=== PATIENT | female | born 1980 | race Caucasian/White ===

== ENCOUNTER → 2018-07-07 09:47 | Outpatient (POV) | payer BC, SELFPAY | PROVIDERS: Visit Provider Dermatology | DX: Z00.00 Encounter for general adult medical examination without abnormal findings (principal) ==

== ENCOUNTER 2021-12-04 04:00 | Day surgery (SDC) | payer BC, SELFPAY ==
[2021-12-04] VITALS (17 sets, daily range): BP systolic 101–128; BP diastolic 44–77; PULSE 88–115; RESP 16–20; TEMP 36.8–43; O2SAT 94–100; BMI 25.8
--- NOTE | 2021-12-04 04:09 | CT_ITS ---
PROCEDURE INFORMATION: Exam: CT Abdomen And Pelvis Without Contrast Exam date and time: 12/04/2021 4:42 AM Age: 41 years old Clinical indication: Abdominal pain; Flank; Left; Additional info: Lt flank pain TECHNIQUE: Imaging protocol: Computed tomography of the abdomen and pelvis without contrast. Radiation optimization: All CT scans at this facility use at least one of these dose optimization techniques: automated exposure control; mA and/or kV adjustment per patient size (includes targeted exams where dose is matched to clinical indication); or iterative reconstruction. COMPARISON: No relevant prior studies available. FINDINGS: PANCREATICOHEPATOBILIARY: The liver is normal without a focal intrahepatic mass or abnormality. No significant intra-or extrahepatic ductal dilation. Gallbladder, pancreas and spleen are unremarkable. . GENITOURINARY: No adrenal mass. Nonobstructive punctate LEFT renal stone(s) measuring 1-3 mm. 6 x 4 mm proximal LEFT ureteric calculus with [id number] LEFT sided hydronephrosis and hydroureter. Asymmetric LEFT perinephric-periureteric fat stranding/trace perinephric fluid. Partially distended urinary bladder. Uterus is unremarkable, LEFT ovarian cyst/follicle measuring 4.5 x 3.4 cm. Trace amount of free fluid in the pelvis. . GASTROINTESTINAL: A few colonic diverticula. Colon contains moderate amount of fecal matter and air. Note is made of a small hiatal hernia. No free intraperitoneal air or fluid collection. A normal APPENDIX is visualized. . OTHER STRUCTURES: Aorta appears unremarkable without evidence of aortic aneurysm. No bulky lymph node enlargement. Calcific granulomas in the RIGHT lower lobe and a noncalcific subpleural mm nodule. IMPRESSION: 1. OBSTRUCTIVE PROXIMAL LEFT URETERIC CALCULUS. 2. Cystic LEFT ovarian/adnexal mass as described. Differential diagnosis includes functional/physiologic ovarian cyst, hemorrhagic ovarian cyst, ovarian torsion, tubo-ovarian abscess/PID and cystic ovarian neoplasm. Recommend sonography followup. 3. Other nonemergent/incidental findings as described. COMMENTS: Suboptimal evaluation of bowel loops and abdominal organs due to motion artifact and due to lack of intravenous and oral contrast.
[2021-12-04 04:32] LABS: Alanine Aminotransferase 34 U/L (12-78); Albumin Level 4.3 g/dl (3.5-5.0); Albumin/Globulin Ratio 1.3 (1.1-1.8); Alkaline Phosphatase 92 U/L (38-126); Amylase 68 U/L (30-110); Anion Gap 13.7 mEq/L (5-15); Aspartate Amino Transferase 39 U/L (14-36); Bilirubin,Total 0.5 mg/dl (0.2-1.3); Blood Urea Nitrogen 12 mg/dl (7-17); Calcium 8.9 mg/dl (8.4-10.2); Carbon Dioxide 23 mmol/L (22.0-30.0); Chloride 107 mmol/L (98-107); Creatinine Clearance Estimated 78 mL/min (50-200); Estimated Glomerular Filt Rate 55 ml/min (>60); GFR (African American) 67 ML/MIN (>60); Globulin 3.3 g/dL (1.3-3.2); Glucose 109 mg/dl (74-100); Lipase 122 U/L (23-300); Potassium 3.7 mmoL/L (3.5-5.1); Sodium 140 mmol/L (136-145); Total Protein,Serum 7.6 g/dl (6.3-8.2)
[2021-12-04 04:33] LABS: Basophils % 0.6 % (0.1-2.0); Eosinophils % 1.4 % (0.1-12.0); Hemoglobin 14.3 g/dL (12.2-16.2); Lymphocytes # 0.3 K/mm3 (0.7-4.5); Lymphocytes % 18.8 % (10-50); Mean Corpuscular HGB Conc 33.2 g/dL (31.8-35.4); Mean Corpuscular Hemoglobin 30.4 pg (27.0-31.2); Mean Corpuscular Volume 91.7 fl (81-99); Mean Platelet Volume 8.7 fl (7.4-10.4); Monocytes # 0.1 K/mm3 (0.1-1.0); Monocytes % 5.4 % (1.7-9.3); Neutrophils % 73.7 % (37.0-80.0); Platelet Count 156 K/mm3 (142-424); Red Blood Count 4.69 M/mm3 (4.20-5.40); Red Cell Distribution Width 12.9 % (11.5-17.5); White Blood Count 1.4 K/mm3 (4.8-10.8)
[2021-12-04 04:37] LABS: C-Reactive Protein 0.6 mg/L (0-4); HCG Qualitative, Serum Negative (Negative)
[2021-12-04 04:51] LABS: Procalcitonin 0.115 ng/mL (0.0-2.0)
[2021-12-04 05:01] LABS: Erythrocyte Sedimentation Rate 12 mm/hr (0-20)
[2021-12-04 05:36] LABS: Microscopic, Urine URINE MICROSCOPIC (MICROSCOPIC)
[2021-12-04 05:47] LABS: Appearance,Urine CLEAR (Clear); Bilirubin,Urine Negative (Negative); Blood, Urine TRACE-L (Negative); Color,Urine YELLOW (Yellow); Glucose,Urine (UA) Negative (Negative); Ketones,Urine Negative (Negative); Leukocyte Esterase,Urine Negative (Negative); Nitrate,Urine Negative (Negative); PH,Urine 5.5 (5.0-8.5); Protein,Urine Negative (Negative); Specific Gravity, Urine 1.015 (1.005-1.030); Urobilinogen,Urine 0.2 EU/dl (0.2)
[2021-12-04 06:08] LABS: Bacteria,Urine Trace /lpf; RBC,Urine Occasional #/hpf (0-3); WBC,Urine Occasional #/hpf (0-3)
--- NOTE | 2021-12-04 06:08 | HMH.EDABDPAI ---
Discharge Plan Disposition Condition: Good Chief Complaint: Abdominal Pain Prescriptions Prescriptions: No Action No Known Home Medications Referrals Follow up/Referrals: Ho Hammond MD [Primary Care Provider] - See instructions Clinical Impressions Clinical Impression: Renal colic on left side, Mass of left ovary, Abnormal CBC Instructions Patient Instructions: DI for Kidney Stones Discharge ED Provider: Willis Cohen Abdominal Pain HPI General Chief Complaint: Abdominal Pain Stated Complaint: possible kidney stone Time Seen by Provider: 12/04/21 06:09 Mode of Arrival: Wheelchair Source of Information: Patient, Spouse and Medical Record Limitations: No Limitations Description of Symptoms (Recalled from ER Triage Doc. by RN): pt c/o lt flank pain radiating to lt groin area with n/v that started @ 1am History of Present Illness HPI narrative: acute onset of lt flank pain this am - no fever and no known renal colic complaint: flank pain Onset (ago): hour(s) Consistency: colicky Location: L flank Severity: moderate Associated symptoms: nausea and vomiting Related Data Home Medications Medication Instructions Recorded Confirmed No Known Home Medications 12/04/21 12/04/21 Allergies Allergy/AdvReac Type Severity Reaction Status Date / Time azithromycin Allergy Verified 12/04/21 10:15 PFSH PFSH Social History Smoking Status: Current every day smoker alcohol intake: never current occupational status: employed ROS Obtained: Yes All systems reviewed & no additional complaints except as documented Constitutional Constitutional: Denies fever(s) and Denies headache(s) Eyes Eyes: Denies photophobia ENT Ears, Nose, Mouth, and Throat: Denies epistaxis and Denies headache(s) Cardiovascular Cardiovascular: Denies chest pain with activity Respiratory Respiratory: Denies shortness of breath Neurologic Neurologic: Denies headache(s) Physical Exam General General appearance: alert Head Head exam: normocephalic Eye Eye exam: Present PERRL and EOMI ENT ENT exam: Present mucous membranes moist Neck Neck exam: Present trachea midline Respiratory Respiratory exam: Present normal lung sounds bilaterally Cardiovascular Cardiovascular exam: Present regular rate Abdominal Exam Abdominal exam: Present soft Back Exam Back exam: Absent CVA tenderness (L) Neurological Exam Neurological exam: Present alert, oriented X3 and CN II-XII intact Psychiatric Psychiatric exam: Present normal affect Skin Skin exam: Absent rash Medical Decision Making Medical Records Medical records reviewed: Yes I reviewed the patient's medical records. Abundio Inquiry Pt receiving controlled substance: No Vital Signs: 12/04/21 04:00 12/04/21 04:30 12/04/21 04:40 Temperature 98.2 F Temperature Source Oral Pulse Rate 90 91 H Pulse Rate [Right] 115 H Respiratory Rate 20 Blood Pressure 112/61 110/71 Blood Pressure [Right Arm] 127/66 Blood Pressure Mean 77 81 Blood Pressure Mean [Right Arm] 86 Blood Pressure Source Blood Pressure Position 02 Sat by Pulse Oximetry 100 99 99 Oxygen Delivery Method 12/04/21 05:00 12/04/21 07:00 12/04/21 07:30 Temperature Temperature Source Pulse Rate 97 H 97 H 94 H Pulse Rate [Right] Respiratory Rate Blood Pressure 128/65 110/63 112/66 Blood Pressure [Right Arm] Blood Pressure Mean 76 82 Blood Pressure Mean [Right Arm] Blood Pressure Source Blood Pressure Position 02 Sat by Pulse Oximetry 99 100 97 Oxygen Delivery Method Room Air 12/04/21 09:00 12/04/21 10:19 Temperature 98.6 F Temperature Source Oral Pulse Rate 113 H 110 H Pulse Rate [Right] Respiratory Rate 18 Blood Pressure 104/77 L 104/77 L Blood Pressure [Right Arm] Blood Pressure Mean 86 Blood Pressure Mean [Right Arm] Blood Pressure Source Automatic Cuff Blood Pressure Position Standing 02 Sat by Pulse Oximetr
--- NOTE | 2021-12-04 06:35 | US_ITS ---
FINAL REPORT CLINICAL HISTORY: possible mass FINDINGS: Transvaginal sonographic images of the pelvis were obtained. The uterus measures 8.2 x 4.9 x 3.5 cm. The endometrium measures 9 mm, which is within normal limits. No uterine mass is identified. The right ovary measures 3.4 cm in length. The left ovary is enlarged and heterogeneous measuring 4.7 cm with a 2.5 cm adjacent cyst. There is a 3.9 cm heterogeneous solid area within the left ovary that could represent a hemorrhagic cyst or possibly neoplasm. Normal blood flow seen to the ovaries. Small follicles are present in the right ovary. There is no evidence of free fluid. IMPRESSION: Solid heterogeneous area in an enlarged left ovary could represent a hemorrhagic cyst or possibly neoplasm. Recommend follow-up. Reviewed, Interpreted and Dictated by Will Butler III, MD Transcribed by Reddy Ha Authenticated and . [facility]
--- NOTE | 2021-12-04 06:37 | PC.NURSE ---
notified xray of ultrasound order
[2021-12-04 06:42] LABS: Basophils % 0.1 % (0.1-2.0); Eosinophils # 0.1 K/mm3 (0.0-0.4); Eosinophils % 1.6 % (0.1-12.0); Hematocrit 36.2 % (37.0-47.0); Lymphocytes # 0.2 K/mm3 (0.7-4.5); Lymphocytes % 3.7 % (10-50); Mean Corpuscular HGB Conc 33.5 g/dL (31.8-35.4); Mean Corpuscular Hemoglobin 30.3 pg (27.0-31.2); Mean Corpuscular Volume 90.4 fl (81-99); Monocytes # 0.1 K/mm3 (0.1-1.0); Monocytes % 1.6 % (1.7-9.3); Neutrophils # 3.7 K/mm3 (1.8-7.8); Platelet Count 136 K/mm3 (142-424); Red Cell Distribution Width 12.9 % (11.5-17.5)
[2021-12-04 06:44] LABS: MANUAL DIFFERENTIAL MANUAL DIFFERENTIAL (MANUAL DIFF)
[2021-12-04 06:46] LABS: Hemoglobin 12.1 g/dL (12.2-16.2)
--- NOTE | 2021-12-04 07:15 | PC.NURSE ---
contacted back digger operator to have Dr. Knapp called for ER
[2021-12-04 07:17] LABS: Lymphocytes % 4 % (10-50); Monocytes % 2 % (2-9); Neutrophils % 94 % (42-76); Platelet Estimate Normal; RBC Morphology Normal; Total Cells Counted 100
--- NOTE | 2021-12-04 07:40 | PC.NURSE ---
patient to US via wc with data reduction technician at this time
--- NOTE | 2021-12-04 07:40 | PC.NURSE ---
PT TO RADIOLOGY AT THIS TIME FOR U/S
--- NOTE | 2021-12-04 07:50 | PC.NURSE ---
DR. WALTERS SPEAKING WITH DR. THOMASON. DR. THOMASON WILL COME TO ED TO EVALUATE PT
--- NOTE | 2021-12-04 08:35 | PC.NURSE ---
0835, ROUNDED ON PT AT THIS TIME, MEDICATED PER EMAR. ADDITIONAL WARM BLANKET PROVIDED. CALL LIGHT WITHIN REACH
[2021-12-04 08:49] LABS: Coronavirus 19, PCR Not Detected (NotDetected); Influenza A, PCR Not Detected (NotDetected); Influenza B, PCR Not Detected (NotDetected)
--- NOTE | 2021-12-04 09:40 | PC.NURSE ---
DR. THOMASON AT BEDSIDE
--- NOTE | 2021-12-04 10:01 | PC.NURSE ---
PT AND UPDATED AT THIS TIME, POC IS SURGERY AT 1330. MEEK FROM PRE-OP WILL COME SPEAK WITH PT. PT GIVEN ORAL CARE KIT AT THIS TIME. NO FURTHER NEEDS
--- NOTE | 2021-12-04 11:06 | EXP.ANES.CKL ---
PFSH PFS Surgical History (Updated 12/04/21 @ 11:09 by Chano Soto CRNA) H/O colonoscopy History of esophagogastroduodenoscopy (EGD) [place] teeth extracted Social History (Updated 12/04/21 @ 10:44 by Willis Cohen MD) Smoking Status: Current every day smoker alcohol intake: never substance use type: denies use current occupational status: employed [employer] Anesthesia Checklist Patient Identification Patient Identification: Arm Band Structural Data Admitted From: Emergency Dept Planned Operative Procedure/s: Cystoscopy with Left Ureteral Stent Placement Verified Documents: Surgical Consent and History and Physical NPO Status Verified Time NPO: 00:00 Additional verifications Anesthesia Reactions: No Airway Assessment C-Spine Mobility Assessed: Yes TMJ Mobility Assessed: Yes Dentition: Good Dentition Neurological Assessment Level of Consciousness: Awake and Alert Anesthesia Plan Anesthesia Risk discussed: Yes Anesthesia Plan: Verified ASA Class: II Anesthesia Type: General
--- NOTE | 2021-12-04 11:22 | EXP.ANES.I ---
[facility] Anesthesia Record Part I Anesthesia Record I Intake, IV Amount: 600 Estimated blood loss (mL): 0 Urine output (mL): 0 Blood Pressure: 101/44 SaO2: 94 Pulse Rate: 88 Respiratory Rate: 16 Temperature: 98.7 F Patient is:: Drowsy and Stable Stable to PACU at:: 11:20
--- NOTE | 2021-12-04 11:25 | XR_ITS ---
FINAL REPORT CLINICAL HISTORY: ureteroscopy with STENT PLACEMENT, fluoro time 2:13 FINDINGS: Fluoroscopic guidance was provided for the operating services. Two spot films were provided. 2 minutes 13 seconds of fluoroscopy time was utilized. IMPRESSION: 2 minutes 13 seconds of fluoroscopy time. Reviewed, Interpreted and Dictated by Wlil Butler III, MD Transcribed by Reddy Ha Authenticated and . [facility]
--- NOTE | 2021-12-04 11:40 | EXP.GEN.HP ---
HPI HPI HPI: Patient is a 41-year-old white female with acute onset of left flank pain radiating to the left lower quadrant last evening. She presented to the emergency room where a CT scan shows a 6 x 3 mm stone in the proximal left ureter with hydronephrosis. She has had severe renal colic which has improved with pain medication. She has had associated nausea vomiting. Her white count is 4000 and creatinine is 1.1. PFSH PFSH Surgical History H/O colonoscopy History of esophagogastroduodenoscopy (EGD) [place] teeth extracted Social History Smoking Status: Current every day smoker alcohol intake: never substance use type: denies use current occupational status: employed Travel in the last 8 weeks: None Review of Systems Review of Systems Review of systems:: pertinent systems reviewed and negative unless documented below Constitutional Constitutional: Reports system reviewed and no additional complaints, except as documented and Denies headache(s) ENT Ears, Nose, Mouth, and Throat: Denies headache(s) *Neurologic Neurologic: Denies headache(s) Meds Home Medications and Allergies Home Medications Medication Instructions Recorded Confirmed Type No Known Home Medications 12/04/21 12/04/21 History New Prescriptions to Start Prescriptions: Allergies Allergy/AdvReac Type Severity Reaction Status Date / Time azithromycin Allergy Verified 12/04/21 10:15 Exam Data for Last 24 hours Vital signs and Labs for Last 24 Hours: Temp Pulse Resp BP Pulse Ox 98.7 F 88 16 101/44 L 100 12/04/21 11:23 12/04/21 11:23 12/04/21 11:23 12/04/21 11:23 12/04/21 09:00 Laboratory Results - last 24 hr 12/04/21 04:15: WBC 1.4 L*, RBC 4.69, Hgb 14.3, Hct 43.0, MCV 91.7, MCH 30.4, MCHC 33.2, RDW 12.9, Plt Count 156, MPV 8.7, Neut % (Auto) 73.7, Lymph % (Auto) 18.8, [place] % (Auto) 5.4, Eos % (Auto) 1.4, Baso % (Auto) 0.6, Neut # (Auto) 1.0 L, Lymph # (Auto) 0.3 L, [place] # (Auto) 0.1, Eos # (Auto) 0.0, Baso # (Auto) 0.0, ESR 12 12/04/21 04:15: Sodium 140, Potassium 3.7, Chloride 107, Carbon Dioxide 23, Anion Gap 13.7, BUN 12, Creatinine 1.10 H, Estimated Creat Clear 78, Estimated GFR 55 L, Est GFR ( Amer) 67, Glucose 109 H, Calcium 8.9, Total Bilirubin 0.5, AST 39 H, ALT 34, Alkaline Phosphatase 92, C-Reactive Protein 0.6, Total Protein 7.6, Albumin 4.3, Globulin 3.3 H, Albumin/Globulin Ratio 1.3, Amylase 68, Lipase 122, Procalcitonin 0.115 12/04/21 04:15: Serum HCG, Qual Negative 12/04/21 05:30: Urine Color Yellow, Urine Appearance Clear, Urine pH 5.5, Ur Specific [place] 1.015, Urine Protein Negative, Urine Glucose (UA) Negative, Urine Ketones Negative, Urine Blood Trace-l, Urine Nitrate Negative, Urine Bilirubin Negative, Urine Urobilinogen 0.2, Ur Leukocyte Esterase Negative, Urine RBC Occasional, Urine WBC Occasional, Ur Squamous Epith Cells 3-5, Urine Bacteria Trace 12/04/21 06:26: WBC 4.0 L D, RBC 4.00 L, Hgb 12.1 L D, Hct 36.2 L, MCV 90.4, MCH 30.3, MCHC 33.5, RDW 12.9, Plt Count 136 L, MPV 8.0, Neut % (Auto) 93.0 H, Lymph % (Auto) 3.7 L, [place] % (Auto) 1.6 L, Eos % (Auto) 1.6, Baso % (Auto) 0.1, Neut # (Auto) 3.7, Lymph # (Auto) 0.2 L, [place] # (Auto) 0.1, Eos # (Auto) 0.1, Baso # (Auto) 0.0, Total Counted 100, Neutrophils % (Manual) 94 H, Lymphocytes % (Manual) 4 L, Monocytes % (Manual) 2, Platelet Estimate Normal, RBC Morphology Normal 12/04/21 08:35: SARS-CoV-2 (PCR) Not detected, Influenza A Untype (PCR) Not detected, Influenza Type B (PCR) Not detected I & O for Last 24 hours: Intake & Output 12/01/21 12/02/21 12/03/21 12/04/21 23:59 23:59 23:59 23:59 Intake Total 600 / 600 Balance 600 / 600 Weight 72.575 kg Constitutional Constitutional: no acute distress *Routine HEENT Exam Head: Present normocephalic Eye: Present EOMI ENT: Present mucous membranes moist *Routine Neck Exam Ne
--- NOTE | 2021-12-04 11:44 | EXP.OP.NOTE ---
Date of procedure: 12/04/21 Pre-op Diagnosis:: 6 mm left proximal ureteral stone Post-op Diagnosis:: Left proximal ureteral stone with obstruction Procedure performed:: Cystoscopy with stone manipulation and left ureteral stent placement Surgeon:: Kian Knapp MD FOREST FIRE SPECIALIST SUPERVISOR:: Chano Soto Anesthesia: LMA Estimated blood loss (mL): 0 Clinical Note:: 41-year-old white female with cute onset of left renal colic last evening. CT scan shows a 6 mm proximal left ureteral stone. We have discussed treatment options and she wishes to proceed with urologic management. Operative findings:: Imaging revealed a calcification in the left proximal ureter. Stone was manipulated proximally back into the kidney and a 4.8 x 24 [place] stent was placed. Operative note:: Patient taken to the operating room after informed consent was obtained. She was placed on the operating table in the supine position and general anesthesia administered. Preoperative antibiotics and sequential compression devices placed. She was then placed into the dorsolithotomy position and prepped and draped in the standard surgical fashion. The 22 [place] the scope passed into the urethra and passed easily into the bladder. The bladder was examined in a systematic fashion. There is no evidence of mucosal abnormality stones diverticula or trabeculation. The ureteral orifices in their normal anatomic position. A 5 [place] ureteral catheter passed into the left ureteral orifice and passed proximally to the left ureteral stone. Stone was manipulated easily back into the left renal pelvis. A guidewire then passed through the ureteral catheter and the ureteral cath removed. A 4.8 x 24 [place] stent was then passed over the guidewire and under fluoroscopy the string and guidewire removed. A good curl was noted proximally and distally. There was brisk output noted from the left ureter with decompression of the ureter. Patient tolerated the procedure well there are no complications. Condition: stable Disposition: PACU Specimens:: None Complications:: None
--- NOTE | 2021-12-04 11:55 | SUR.PHASEI ---
1150- detailed report given to bull resendiz in post op 1151- pt left in stable condition with bull resendiz
--- NOTE | 2021-12-05 08:13 | EXP.ANES.II ---
[facility] Anesthesia Record Part II Anesthesia Record Part II Discharge Time: 11:50 Destination: Surgical Day Care (OP Surgery) PACU nurse assessment reviewed?: Yes Patient Condition:: Good Anesthesia Complications:: None Swallowing reflex intact?: Yes Cyanosis?: No Blood Pressure: 106/52 Pulse Rate: 96 Temperature: 98.7 F Mental Status: Alert & Oriented Pain level:: 0 Nausea and/or vomitting:: None Intake, IV Amount: 0
[2021-12-05 08:15] VITALS: BP 106/52; PULSE 96; TEMP 37.1
[2021-12-06 06:53] LABS: Peripheral Smear Review Scanned Result
== END 2021-12-04 12:30 | disposition home or self-care (01) ==
LOC: ER 10:37 → SDC 12-05 09:59
PROVIDERS: Emergency Medicine; PCP Internal Medicine Adolescent Medicine; Visit Provider Urology
PROC: (CPT 52330; principal; 2021-12-04 13:15)
DX: N20.1 Calculus of ureter (principal); Z72.0 Tobacco use; N23 Unspecified renal colic
CPT/HCPCS: 52330; 52332; 36415; 74018; 74176; 76000; 76830; 80053; 81001; 82150; 83690; 84145; 84703; 85007; 85025; 85651; 86140; 96374; C2617; C9803; J2405; J2505; U0003; U0005

== ENCOUNTER → 2021-12-12 16:52 | Outpatient (CLI) | payer BC, SELFPAY ==
[2021-12-12 17:00] LABS: MANUAL DIFFERENTIAL MANUAL DIFFERENTIAL (MANUAL DIFF)
[2021-12-12 17:37] LABS: Basophils # 0.1 K/mm3 (0-0.2); Basophils % 1.5 % (0.1-2.0); Eosinophils # 0.1 K/mm3 (0.0-0.4); Eosinophils % 1.4 % (0.1-12.0); Hematocrit 41.2 % (37.0-47.0); Hemoglobin 13.3 g/dL (12.2-16.2); Lymphocytes # 2.2 K/mm3 (0.7-4.5); Lymphocytes % 34.1 % (10-50); Mean Corpuscular HGB Conc 32.2 g/dL (31.8-35.4); Mean Corpuscular Hemoglobin 30.4 pg (27.0-31.2); Mean Corpuscular Volume 94.3 fl (81-99); Mean Platelet Volume 9.5 fl (7.4-10.4); Monocytes # 0.5 K/mm3 (0.1-1.0); Monocytes % 7.3 % (1.7-9.3); Neutrophils # 3.5 K/mm3 (1.8-7.8); Neutrophils % 55.6 % (37.0-80.0); Platelet Count 282 K/mm3 (142-424); Red Blood Count 4.37 M/mm3 (4.20-5.40); Red Cell Distribution Width 13.2 % (11.5-17.5); White Blood Count 6.4 K/mm3 (4.8-10.8)
[2021-12-12 17:49] LABS: Anion Gap 9.6 mEq/L (5-15); Blood Urea Nitrogen 14 mg/dl (7-17); Calcium 8.6 mg/dl (8.4-10.2); Carbon Dioxide 26 mmol/L (22.0-30.0); Chloride 107 mmol/L (98-107); Estimated Glomerular Filt Rate 79 ml/min (>60); GFR (African American) 96 ML/MIN (>60); Glucose 78 mg/dl (74-100); Potassium 4.6 mmoL/L (3.5-5.1); Sodium 138 mmol/L (136-145)
[2021-12-12 18:26] LABS: Urine Pregnancy, HCG Qual. Negative (Negative)
[2021-12-12 19:50] LABS: Eosinophils % 2 % (0-3); Lymphocytes % 36 % (10-50); Monocytes % 5 % (2-9); Neutrophils % 56 % (42-76); Platelet Estimate Normal; RBC Morphology Normal; Total Cells Counted 100
== END ==
PROVIDERS: PCP Internal Medicine Adolescent Medicine; Visit Provider Urology
DX: Z01.812 Encounter for preprocedural laboratory examination (principal); Z20.822 Contact with and (suspected) exposure to COVID-19; N20.1 Calculus of ureter
CPT/HCPCS: 36415; 80048; 81025; 85007; 85014; 85018; 85048; 85049; C9803; U0003; U0005

== ENCOUNTER 2021-12-14 08:35 | Day surgery (SDC) | payer BC, SELFPAY ==
[2021-12-11 13:49] VITALS: BMI 25.0
[2021-12-14] VITALS (12 sets, daily range): BP systolic 116–138; BP diastolic 52–91; PULSE 58–78; RESP 13–20; TEMP 36.1–36.7; O2SAT 94–100
--- NOTE | 2021-12-14 09:01 | XR_ITS ---
FINAL REPORT CLINICAL HISTORY: kidney stone, pre op FINDINGS: SINGLE VIEW ABDOMEN A single view of the abdomen was obtained. There is a nonobstructive bowel gas pattern. There are no abnormally dilated loops of small bowel. There are small stones in the mid left kidney. A left ureteral stent is in place. No ureteral stone is identified. IMPRESSION: Nonobstructive bowel gas pattern. Small stones in the mid left kidney. Reviewed, Interpreted and Dictated by Will Butler III, MD Transcribed by Rupali Escalera Authenticated and . [facility]
--- NOTE | 2021-12-14 10:21 | EXP.ANES.CKL ---
[facility] Surgical History H/O colonoscopy History of esophagogastroduodenoscopy (EGD) [place] teeth extracted Family History (Updated 12/11/21 @ 14:20 by Kyra Holcomb RN) Father Family history of myocardial infarction Social History (Updated 12/11/21 @ 13:53 by Kyra Holcomb RN) Smoking Status: Current every day smoker tobacco type: cigarettes packs per day: 1 pack-years: 20 alcohol intake: never substance use type: denies use current occupational status: employed Travel in the last 8 weeks: None [facility] Anesthesia Checklist Patient Identification Patient Identification: Arm Band Structural Data Admitted From: Home Planned Operative Procedure/s: left eswal Consent for Planned Operative Procedure(s) Verified: Yes Verified Documents: Surgical Consent NPO Status Verified Time NPO: 00:00 Additional verifications Anesthesia Reactions: No Hx Blood Transfusions: No Blood Transfusion Reaction: No Cephalosporin Allergy: No Airway Assessment C-Spine Mobility Assessed: Yes TMJ Mobility Assessed: Yes Dentition: Good Dentition Genitourinary Assessment Voided financial institution branch manager to O.R.: Yes Anesthesia Plan Anesthesia Risk discussed: Yes ASA Class: I Anesthesia Type: General
--- NOTE | 2021-12-14 10:38 | P.PNANES_ITS ---
[facility] Anesthesia Record Part I Anesthesia Record I Intake, IV Amount: 650 Estimated blood loss (mL): 0 Urine output (mL): 0 Blood Products used (#): none Blood Pressure: 126/52 SaO2: 98 Pulse Rate: 66 Respiratory Rate: 16 Temperature: 97 F Patient is:: Drowsy and Stable Stable to PACU at:: 10:35
--- NOTE | 2021-12-14 10:46 | EXP.OP.NOTE ---
Date of procedure: 12/14/21 Pre-op Diagnosis:: 6 mm left kidney stone Post-op Diagnosis:: Same Procedure performed:: Left ESWL Surgeon:: Kian Knapp MD FLIGHT OPERATIONS MANAGER:: Other Anesthesia: LMA Estimated blood loss (mL): 0 Clinical Note:: 41-year-old white female with recent left renal colic status post left ureteral stone manipulation left stent placement presents for ESWL. Operative findings:: Preoperative KUB reveals the 6 mm stone in the left renal pole and a stent in good position. Operative note:: Patient taken to the operating room after informed consent was obtained. She was placed on the operating table in the supine position and general anesthesia administered. Sequential compression devices and preoperative antibiotics administered. In the supine position she was positioned so that F2 the lithotripter was focused onto the left kidney stone. Total of 3000 shockwaves at a maximum energy of 6 was administered. There was evidence of good fragmentation of the stone. She tolerated procedure well no complications. Condition: stable Disposition: PACU Specimens:: None Complications:: None
--- NOTE | 2021-12-14 11:11 | SUR.PHASEI ---
1103 detailed report given to Gayle Drew RN 1105 transported via stretcher to post op. vital signs stable. rates pain at a 3. left in stable condition with Gayle Drew RN at bedside.
--- NOTE | 2021-12-14 11:15 | SUR.PHASEII ---
1115 - Pt reports pain 3-4/10 flank pain, pt received pain meds in PACU. States no relief. Dr. Knapp made aware of this, MD does not wish to give any further orders for pain medication. Warm blanket available to patient. at bedside. Pt states pain still present but warm heat does help.
--- NOTE | 2021-12-14 12:02 | EXP.ANES.CKL ---
[facility] Surgical History H/O colonoscopy History of esophagogastroduodenoscopy (EGD) [place] teeth extracted Family History (Updated 12/11/21 @ 14:20 by Kyra Holcomb RN) Father Family history of myocardial infarction Social History (Updated 12/11/21 @ 13:53 by Kyra Holcomb RN) Smoking Status: Current every day smoker tobacco type: cigarettes packs per day: 1 pack-years: 20 alcohol intake: never substance use type: denies use current occupational status: employed Travel in the last 8 weeks: None [facility] Anesthesia Checklist Patient Identification Patient Identification: Arm Band Structural Data Admitted From: Home Planned Operative Procedure/s: ESWAL with right cysto Consent for Planned Operative Procedure(s) Verified: Yes Verified Documents: Surgical Consent and History and Physical NPO Status Verified Time NPO: 00:00 Additional verifications Anesthesia Reactions: No Hx Blood Transfusions: No Blood Transfusion Reaction: No Cephalosporin Allergy: No Airway Assessment C-Spine Mobility Assessed: Yes TMJ Mobility Assessed: Yes Dentition: Dentures-good fit Neurological Assessment Level of Consciousness: Awake, Alert, Appropriate and Follows Commands Hx Seizures: No Numbness or tingling in extremities: No Genitourinary Assessment Voided bakery worker conveyor line to O.R.: No Urinary Incontinence: None Anesthesia Plan Anesthesia Risk discussed: Yes ASA Class: II Anesthesia Type: General
--- NOTE | 2021-12-14 12:07 | P.PNANES_ITS ---
[facility] Anesthesia Record Part I Anesthesia Record I Intake, IV Amount: 450 Estimated blood loss (mL): 0 Urine output (mL): 0 Blood Products used (#): none Blood Pressure: 119/59 SaO2: 94 Pulse Rate: 58 Respiratory Rate: 20 Temperature: 97 F Patient is:: Drowsy and Stable Stable to PACU at:: 11:58
--- NOTE | 2021-12-14 12:16 | EXP.ANES.II ---
[facility] Anesthesia Record Part II Anesthesia Record Part II Discharge Time: 11:05 Destination: Surgical Day Care (OP Surgery) PACU nurse assessment reviewed?: Yes Patient Condition:: Good Anesthesia Complications:: None Swallowing reflex intact?: Yes Cyanosis?: No Blood Pressure: 130/64 Pulse Rate: 75 Temperature: 98 F Mental Status: Alert & Oriented Pain level:: 3 Nausea and/or vomitting:: None Intake, IV Amount: 0
== END 2021-12-14 11:45 | disposition home or self-care (01) ==
PROVIDERS: PCP Internal Medicine Adolescent Medicine; Visit Provider Urology
PROC: (CPT 50590; principal; 2021-12-14 09:15)
DX: N20.0 Calculus of kidney (principal); N23 Unspecified renal colic; Z72.0 Tobacco use
CPT/HCPCS: 50590; 74018; 96374; J2405

== ENCOUNTER → 2021-12-21 14:18 | Outpatient (CLI) | payer BC, SELFPAY ==
--- NOTE | 2021-12-21 14:23 | XR_ITS ---
FINAL REPORT CLINICAL HISTORY: kidney stone f/u FINDINGS: A single view of the abdomen was obtained. A left ureteral stent is present. Bowel gas and stool obscure the renal outlines. There is no definite renal stone. IMPRESSION: No definite renal stone. Reviewed, Interpreted and Dictated by Will Butler III, MD Transcribed by Suzan Jimenez Authenticated and . [facility]
[2022-01-05 18:46] LABS: Ca oxalate dihydrate 0
[2022-01-05 18:50] LABS: Calcium phosphate 90
[2022-01-05 18:51] LABS: Ammonium acid urate 0; Calcium bilirubinate 0; Calcium carbonate 0; Cholesterol 0; Magnesium ammon phos 0; Sodium acid urate 0; Uric acid dihydrate 0
== END ==
PROVIDERS: PCP Internal Medicine Adolescent Medicine; Visit Provider Urology
DX: N20.0 Calculus of kidney (principal); N20.1 Calculus of ureter
CPT/HCPCS: 74018; 82370

== ENCOUNTER → 2021-12-21 16:48 | Outpatient (CLI) | payer BC, SELFPAY | PROVIDERS: Visit Provider Urology | DX: N20.1 Calculus of ureter (principal) ==